=== PATIENT | male | born 1960 | race Caucasian/White ===

== ENCOUNTER 2019-07-07 15:47 | Inpatient (IN) | payer MEDICAID ==
[~2019-07-07] VITALS: Ht 182.9 cm; Wt 132.5 kg
[2019-07-07] MEDS ORDERED: ceFAZolin 1GM/D5W- ADD-VANTAGE 50 ML IV ONE (16:45)
[2019-07-07 17:05] LABS: BASOPHILS % (AUTO) 0.4 % (0-1); EOSINOPHILS # (AUTO) 0.1 X10'3 (0-0.9); EOSINOPHILS % (AUTO) 1.5 % (0-6); HEMATOCRIT 36.4 % (42.0-52.0); HEMOGLOBIN 12.6 g/dl (14.0-17.9); LYMPHOCYTES % (AUTO) 11.9 % (21-51); MEAN CORPUSCULAR HEMOGLOBIN 31.4 PG (27.0-31.0); MEAN CORPUSCULAR HGB CONC 34.6 g/dL (33.0-36.5); MEAN CORPUSCULAR VOLUME 90.7 FL (78-98); MEAN PLATELET VOLUME 6.6 FL (7.4-10.4); MONOCYTES # (AUTO) 0.4 X10'3 (0-0.9); NEUTROPHILS % (AUTO) 81.2 % (42-75); PLATELET COUNT 229 X10'3 (140-440); RED BLOOD COUNT 4.01 X10'6 (4.70-6.10); RED CELL DISTRIBUTION WIDTH 13.9 % (11.5-14.5); WHITE BLOOD COUNT 8.7 X10'3 (4.5-11.0)
[2019-07-07 17:21] LABS: ALANINE AMINOTRANSFERASE 41 U/L (12-78); ALBUMIN 2.8 G/DL (3.4-5.0); ALBUMIN/GLOBULIN RATIO 0.7 (1.1-1.5); ALKALINE PHOSPHATASE 98 IU/L (46-116); ANION GAP 9 (8-16); ASPARTATE AMINO TRANSFERASE 31 U/L (10-37); BILIRUBIN,TOTAL 1.1 MG/DL (0.1-1.0); BLOOD UREA NITROGEN 18 MG/DL (7-18); BUN/CREATININE RATIO 15.4 (5.4-32.0); CALCIUM 8.5 MG/DL (8.5-10.1); CHLORIDE 102 MMOL/L (99-107); CREATININE 1.17 MG/DL (0.60-1.10); GLUCOSE 149 MG/DL (70-104); MAGNESIUM 1.8 MG/DL (1.5-2.4); POTASSIUM 3.4 MMOL/L (3.5-5.1); SODIUM 137 MMOL/L (135-145); TOTAL CARBON DIOXIDE 26.3 MMOL/L (24-32); TOTAL PROTEIN 7.1 G/DL (6.4-8.2); eGFR 64 ML/MIN
[2019-07-07 17:24] LABS: D-DIMER 0.97 MG/L FEU (0-0.50)
--- NOTE | 2019-07-07 17:27 | NUR ---
Spoke with MD Fontenot concerning blood cultures before starting antibiotics. MD Fontenot declined new orders
[2019-07-07] MEDS ORDERED: IBUP-1986 PO (18:29)
[2019-07-07] MEDS ORDERED: FURO-150 PO (18:29)
[2019-07-07] MEDS ORDERED: iohexol 350MG/ML 100ml bottle IV ONE (19:05)
[2019-07-07] MEDS ORDERED: normal saline 1000ml 1,000 ML IV SCH (20:41)
[2019-07-07] MEDS ORDERED: acetaminophen 325mg tablet PO PRN (20:45)
[2019-07-07] MEDS ORDERED: HYDROmorphone inj. 0.5 MG/0.5 ML DISP.SYRIN IV PRN (20:45)
[2019-07-07] MEDS ORDERED: mag hydrox/Alum hydrox/simeth 30ml oral suspension PO PRN (20:45)
[2019-07-07] MEDS ORDERED: magnesium hydroxide 30ml (MOM) UD suspension PO PRN (20:45)
[2019-07-07] MEDS ORDERED: HYDROcodone/acetaminophen 5mg/325mg tablet PO PRN (20:45)
[2019-07-07] MEDS ORDERED: ondansetron/PF 4mg/2ml inj IV PRN (20:45)
[2019-07-07] MEDS ORDERED: cloNIDine 0.1 MG/24 HOUR patch (7 day patch) TD ONE (20:50)
--- NOTE | 2019-07-07 21:00 | NUR ---
Patient in room ORTHO 4014. I have received report from ASHLEY Gr and had the opportunity to ask questions and assume patient care.
[2019-07-07] MEDS: HYDROmorphone 1 mg/ml syringe IV PRN (21:32)
[2019-07-07 22:00] VITALS: BP 143/72
[2019-07-07] MEDS: HYDROcodone/acetaminophen 10/325mg tab PO PRN (22:49)
[2019-07-08] MEDS: ceFAZolin 1GM/D5W- ADD-VANTAGE 50 ML IV SCH ×2 (00:15→07:15)
[2019-07-08] MEDS: HYDROmorphone 1 mg/ml syringe IV PRN ×4 (02:59→20:13)
[2019-07-08 04:05] LABS: URINE AMPHETAMINE SCREEN POSITIVE (Neg); URINE BARBITUATE SCREEN NEGATIVE (Neg); URINE BENZODIAZEPINES SCREEN NEGATIVE (Neg); URINE CANNABINOID SCREEN POSITIVE (Neg); URINE COCAINE SCREEN NEGATIVE (Neg); URINE METHADONE SCREEN NEGATIVE (Neg); URINE OPIATE SCREEN POSITIVE (Neg); URINE PHENCYCLIDINE SCREEN NEGATIVE (Neg)
[2019-07-08 06:25] LABS: BASOPHILS % (AUTO) 0.3 % (0-1); EOSINOPHILS # (AUTO) 0.1 X10'3 (0-0.9); EOSINOPHILS % (AUTO) 1.6 % (0-6); HEMATOCRIT 34.1 % (42.0-52.0); HEMOGLOBIN 11.9 g/dl (14.0-17.9); LYMPHOCYTES # (AUTO) 0.8 X10'3 (1.1-4.8); LYMPHOCYTES % (AUTO) 12.8 % (21-51); MEAN CORPUSCULAR HEMOGLOBIN 31.5 PG (27.0-31.0); MEAN CORPUSCULAR HGB CONC 34.9 g/dL (33.0-36.5); MEAN CORPUSCULAR VOLUME 90.4 FL (78-98); MEAN PLATELET VOLUME 6.6 FL (7.4-10.4); MONOCYTES # (AUTO) 0.5 X10'3 (0-0.9); MONOCYTES % (AUTO) 8.5 % (2-12); NEUTROPHILS # (AUTO) 4.9 X10'3 (1.8-7.7); NEUTROPHILS % (AUTO) 76.8 % (42-75); PLATELET COUNT 228 X10'3 (140-440); RED BLOOD COUNT 3.77 X10'6 (4.70-6.10); RED CELL DISTRIBUTION WIDTH 13.7 % (11.5-14.5); WHITE BLOOD COUNT 6.3 X10'3 (4.5-11.0)
--- NOTE | 2019-07-08 06:39 | NUR ---
Problems reprioritized. Patient report given, questions answered & plan of care reviewed with ASHLEY Crane and ASHLEY Bolaños.
[2019-07-08 06:51] VITALS: BP 121/83
--- NOTE | 2019-07-08 06:52 | NUR ---
Patient in room ORTHO 4014. I have received report from Vivien RAMIREZ and had the opportunity to ask questions and assume patient care.
[2019-07-08 07:05] LABS: ALANINE AMINOTRANSFERASE 57 U/L (12-78); ALBUMIN 2.4 G/DL (3.4-5.0); ALBUMIN/GLOBULIN RATIO 0.6 (1.1-1.5); ALKALINE PHOSPHATASE 96 IU/L (46-116); ANION GAP 9 (8-16); ASPARTATE AMINO TRANSFERASE 61 U/L (10-37); BLOOD UREA NITROGEN 16 MG/DL (7-18); BUN/CREATININE RATIO 16.2 (5.4-32.0); CALCIUM 8.1 MG/DL (8.5-10.1); CHLORIDE 103 MMOL/L (99-107); CREATININE 0.99 MG/DL (0.60-1.10); GLUCOSE 110 MG/DL (70-104); POTASSIUM 3.7 MMOL/L (3.5-5.1); SODIUM 138 MMOL/L (135-145); TOTAL CARBON DIOXIDE 25.6 MMOL/L (24-32); TOTAL PROTEIN 6.4 G/DL (6.4-8.2); eGFR 77 ML/MIN
[2019-07-08] MEDS: heparin, porcine 5000 units/ml vial SQ SCH ×2 (07:14→20:04)
[2019-07-08] MEDS: HYDROcodone/acetaminophen 10/325mg tab PO PRN ×3 (07:27→19:04)
[2019-07-08 10:49] VITALS: BP 121/64
[2019-07-08] MEDS: cefazolin/dext.iso 2gm/100ml 100 ML IV SCH (15:15)
--- NOTE | 2019-07-08 16:27 | NUR ---
Miky [id number] Re: [id number]. Can we get a order for Ativan, Pt appears to be withdrawing, having sweats, shakiness, agitation.
[2019-07-08] MEDS ORDERED: methadone 10mg tablet PO ONE ×2 (16:40→19:50)
[2019-07-08 18:00] VITALS: BP 168/92
--- NOTE | 2019-07-08 18:20 | NUR ---
Patient in room ORTHO 4014. I have received report from MikyRN and Rosa MariaRN and had the opportunity to ask questions and assume patient care.
--- NOTE | 2019-07-08 18:25 | NUR ---
I have reviewed and agree with all interventions, assessments performed and documented by Miky RAMIREZ.
--- NOTE | 2019-07-08 18:27 | NUR ---
Problems reprioritized. Patient report given, questions answered & plan of care reviewed with Vivien RAMIREZ.
[2019-07-08] MEDS ORDERED: cloNIDine 0.1 MG/24 HOUR patch (7 day patch) TD ONE (19:50)
--- NOTE | 2019-07-08 20:00 | NUR ---
Shyane was going to withdraw from heroin ,he was not feeling well at all,I call the doctor he gave a order for Methadone 20 mg one time order and Clonidine 0.1 mg.one time order also.We will continue with pt. care.
[2019-07-08 22:00] VITALS: BP 131/80
[2019-07-09] MEDS: cefazolin/dext.iso 2gm/100ml 100 ML IV SCH ×4 (00:16→23:56)
[2019-07-09] MEDS: HYDROcodone/acetaminophen 10/325mg tab PO PRN ×4 (00:20→18:49)
[2019-07-09] MEDS ORDERED: methadone 5mg tablet PO PRN (00:35)
[2019-07-09] MEDS: methadone 5mg tablet PO SCH ×3 (01:02→08:00)
[2019-07-09] MEDS: HYDROmorphone 1 mg/ml syringe IV PRN ×4 (04:21→20:38)
--- NOTE | 2019-07-09 06:21 | NUR ---
Problems reprioritized. Patient report given, questions answered & plan of care reviewed with ASHLEY Reyez.
--- NOTE | 2019-07-09 06:23 | NUR ---
Received report from Vivien RAMIREZ
[2019-07-09 06:24] VITALS: BP 119/60
[2019-07-09 06:58] LABS: BASOPHILS % (AUTO) 0.8 % (0-1); EOSINOPHILS # (AUTO) 0.2 X10'3 (0-0.9); EOSINOPHILS % (AUTO) 3.1 % (0-6); HEMATOCRIT 34.4 % (42.0-52.0); HEMOGLOBIN 11.9 g/dl (14.0-17.9); LYMPHOCYTES # (AUTO) 0.9 X10'3 (1.1-4.8); LYMPHOCYTES % (AUTO) 17.9 % (21-51); MEAN CORPUSCULAR HEMOGLOBIN 31.4 PG (27.0-31.0); MEAN CORPUSCULAR HGB CONC 34.7 g/dL (33.0-36.5); MEAN CORPUSCULAR VOLUME 90.5 FL (78-98); MEAN PLATELET VOLUME 6.7 FL (7.4-10.4); MONOCYTES # (AUTO) 0.5 X10'3 (0-0.9); MONOCYTES % (AUTO) 10.6 % (2-12); NEUTROPHILS # (AUTO) 3.3 X10'3 (1.8-7.7); NEUTROPHILS % (AUTO) 67.6 % (42-75); PLATELET COUNT 258 X10'3 (140-440); RED CELL DISTRIBUTION WIDTH 13.6 % (11.5-14.5); WHITE BLOOD COUNT 4.9 X10'3 (4.5-11.0)
[2019-07-09 07:07] LABS: ALANINE AMINOTRANSFERASE 76 U/L (12-78); ALBUMIN 2.2 G/DL (3.4-5.0); ALBUMIN/GLOBULIN RATIO 0.5 (1.1-1.5); ALKALINE PHOSPHATASE 101 IU/L (46-116); ANION GAP 8 (8-16); ASPARTATE AMINO TRANSFERASE 75 U/L (10-37); BILIRUBIN,TOTAL 0.6 MG/DL (0.1-1.0); BLOOD UREA NITROGEN 15 MG/DL (7-18); BUN/CREATININE RATIO 15.3 (5.4-32.0); CALCIUM 7.8 MG/DL (8.5-10.1); CHLORIDE 105 MMOL/L (99-107); CREATININE 0.98 MG/DL (0.60-1.10); GLUCOSE 134 MG/DL (70-104); POTASSIUM 3.7 MMOL/L (3.5-5.1); SODIUM 139 MMOL/L (135-145); TOTAL CARBON DIOXIDE 25.9 MMOL/L (24-32); TOTAL PROTEIN 6.3 G/DL (6.4-8.2); eGFR 78 ML/MIN
[2019-07-09] MEDS ORDERED: enoxaparin 40mg/0.4ml syringe SUBCUT SCH (08:00)
[2019-07-09] MEDS: heparin, porcine 5000 units/ml vial SQ SCH ×2 (08:11→20:02)
[2019-07-09] MEDS: methadone 10mg tablet PO SCH ×2 (08:51→20:01)
[2019-07-09] MEDS: furosemide 20 MG/2 ML vial IV SCH (10:41)
[2019-07-09 18:00] VITALS: BP 125/80
[2019-07-09 22:00] VITALS: BP 164/102
[2019-07-10] MEDS: HYDROmorphone 1 mg/ml syringe IV PRN ×2 (00:51→09:00)
[2019-07-10 01:00] VITALS: BP 115/66
[2019-07-10] MEDS: HYDROcodone/acetaminophen 10/325mg tab PO PRN ×2 (04:12→11:45)
[2019-07-10 06:00] VITALS: BP 163/89
[2019-07-10 06:25] LABS: BASOPHILS % (AUTO) 0.5 % (0-1); EOSINOPHILS # (AUTO) 0.2 X10'3 (0-0.9); EOSINOPHILS % (AUTO) 3.1 % (0-6); HEMATOCRIT 35.9 % (42.0-52.0); HEMOGLOBIN 12.4 g/dl (14.0-17.9); LYMPHOCYTES # (AUTO) 1.1 X10'3 (1.1-4.8); LYMPHOCYTES % (AUTO) 18.5 % (21-51); MEAN CORPUSCULAR HEMOGLOBIN 31.2 PG (27.0-31.0); MEAN CORPUSCULAR HGB CONC 34.5 g/dL (33.0-36.5); MEAN CORPUSCULAR VOLUME 90.3 FL (78-98); MEAN PLATELET VOLUME 6.5 FL (7.4-10.4); MONOCYTES # (AUTO) 0.7 X10'3 (0-0.9); MONOCYTES % (AUTO) 12.4 % (2-12); NEUTROPHILS # (AUTO) 3.9 X10'3 (1.8-7.7); NEUTROPHILS % (AUTO) 65.5 % (42-75); PLATELET COUNT 286 X10'3 (140-440); RED BLOOD COUNT 3.97 X10'6 (4.70-6.10); RED CELL DISTRIBUTION WIDTH 13.4 % (11.5-14.5); WHITE BLOOD COUNT 5.9 X10'3 (4.5-11.0)
[2019-07-10 06:33] LABS: ALANINE AMINOTRANSFERASE 61 U/L (12-78); ALBUMIN 2.4 G/DL (3.4-5.0); ALBUMIN/GLOBULIN RATIO 0.6 (1.1-1.5); ALKALINE PHOSPHATASE 105 IU/L (46-116); ANION GAP 7 (8-16); ASPARTATE AMINO TRANSFERASE 49 U/L (10-37); BILIRUBIN,TOTAL 0.6 MG/DL (0.1-1.0); BLOOD UREA NITROGEN 15 MG/DL (7-18); BUN/CREATININE RATIO 15.5 (5.4-32.0); CHLORIDE 104 MMOL/L (99-107); CREATININE 0.97 MG/DL (0.60-1.10); GLUCOSE 100 MG/DL (70-104); POTASSIUM 3.9 MMOL/L (3.5-5.1); SODIUM 138 MMOL/L (135-145); TOTAL CARBON DIOXIDE 26.7 MMOL/L (24-32); TOTAL PROTEIN 6.6 G/DL (6.4-8.2); eGFR 79 ML/MIN
[2019-07-10] MEDS: furosemide 20 MG/2 ML vial IV SCH (08:59)
[2019-07-10] MEDS: cefazolin/dext.iso 2gm/100ml 100 ML IV SCH (08:59)
[2019-07-10] MEDS: heparin, porcine 5000 units/ml vial SQ SCH (08:59)
[2019-07-10] MEDS: methadone 10mg tablet PO SCH (09:01)
[2019-07-10] MEDS ORDERED: CEPH250T PO (10:16)
[2019-07-10] MEDS ORDERED: HYDR-4383 PO (10:17)
--- NOTE | 2019-07-10 12:00 | NUR ---
DISCHARGE: VSS, RR even/unlabored. O2 96 RA at DC. pt uses O2 PRN at home. Lungs Wheezes r/t COPD, smoking habits/. New Rx for Keflex and [place] to full at pharmacy of pt choice. pt verbalized understanding of follow up w/recommended facilities for addiction. First appt made tomorrow 07/11/19. All necessary DC documents signed and copies released to pt. pt escorted TOMASZ in WC by [facility] staff & family members. pt transferred safely into personal vehicle. pt thanked [facility] for his care.
== END 2019-07-10 12:05 | disposition home or self-care (01) | DRG 194 ==
LOC: ER 15:48 → ORTHO 4S 21:43
PROVIDERS: ADMIT Internal Medicine; ATTEND Internal Medicine
PROC: B32T1ZZ Computerized Tomography (CT Scan) of Left Pulmonary Artery using Low Osmolar Contrast (ICD-10-PCS; principal; 2019-07-07)
PROC: B3201ZZ Computerized Tomography (CT Scan) of Thoracic Aorta using Low Osmolar Contrast (ICD-10-PCS; 2019-07-07)
PROC: B32S1ZZ Computerized Tomography (CT Scan) of Right Pulmonary Artery using Low Osmolar Contrast (ICD-10-PCS; 2019-07-07)
DX: I50.813 Acute on chronic right heart failure (principal); I27.81 Cor pulmonale (chronic); E66.01 Morbid (severe) obesity due to excess calories; E11.9 Type 2 diabetes mellitus without complications; L03.115 Cellulitis of right lower limb; F11.23 Opioid dependence with withdrawal; F17.210 Nicotine dependence, cigarettes, uncomplicated; F12.90 Cannabis use, unspecified, uncomplicated; I89.0 Lymphedema, not elsewhere classified; J44.9 Chronic obstructive pulmonary disease, unspecified; Z79.899 Other long term (current) drug therapy; Z86.711 Personal history of pulmonary embolism; Z68.39 Body mass index [BMI] 39.0-39.9, adult; Z80.3 Family history of malignant neoplasm of breast
CPT/HCPCS: 36415; 71045; 71275; 80053; 80305; 83735; 84145; 85025; 85379; 87081; 93005; 93306; 93971; 96365; 97116; 97161; 97530; 99285; G0378; J0690; J1170; J1644; J1940; J7030; Q9967

== ENCOUNTER 2019-07-19 10:46 | Emergency (ER) | payer MEDICAID ==
[~2019-07-19] VITALS: Ht 182.9 cm; Wt 118.2 kg
[~2019-07-19 10:46] MED LIST: CEPH250T PO; FURO-150 PO; HYDR-4383 PO; IBUP-1986 PO
[2019-07-19] MEDS ORDERED: buprenorphine/naloxone 8mg/2mg SL tablet SL PRN (12:45)
[2019-07-19] MEDS ORDERED: furosemide 40mg/4ml inj IV ONE (12:50)
[2019-07-19] MEDS ORDERED: furosemide 10 MG/1 ML 10ml inj IV ONE (12:50)
[2019-07-19] MEDS ORDERED: furosemide 20MG tablet PO ONE (12:55)
--- NOTE | 2019-07-19 12:58 | NUR ---
CALLED PHARMACY STATED MAKING SUBOXONE NOW STATED ABOUT 10 MIN WILL BRING DOWN
[2019-07-19 13:09] LABS: BASOPHILS # (AUTO) 0.1 X10'3 (0-0.2); BASOPHILS % (AUTO) 0.8 % (0-1); EOSINOPHILS # (AUTO) 0.1 X10'3 (0-0.9); HEMATOCRIT 43.1 % (42.0-52.0); HEMOGLOBIN 14.7 g/dl (14.0-17.9); LYMPHOCYTES # (AUTO) 1.1 X10'3 (1.1-4.8); LYMPHOCYTES % (AUTO) 14.1 % (21-51); MEAN CORPUSCULAR HEMOGLOBIN 31.3 PG (27.0-31.0); MEAN CORPUSCULAR VOLUME 91.8 FL (78-98); MEAN PLATELET VOLUME 6.6 FL (7.4-10.4); MONOCYTES # (AUTO) 0.5 X10'3 (0-0.9); MONOCYTES % (AUTO) 6.1 % (2-12); NEUTROPHILS # (AUTO) 6.1 X10'3 (1.8-7.7); PLATELET COUNT 378 X10'3 (140-440); RED BLOOD COUNT 4.69 X10'6 (4.70-6.10); RED CELL DISTRIBUTION WIDTH 13.6 % (11.5-14.5); WHITE BLOOD COUNT 7.8 X10'3 (4.5-11.0)
[2019-07-19 13:21] LABS: ALANINE AMINOTRANSFERASE 19 U/L (12-78); ALBUMIN 3.5 G/DL (3.4-5.0); ALBUMIN/GLOBULIN RATIO 0.7 (1.1-1.5); ALKALINE PHOSPHATASE 120 IU/L (46-116); ANION GAP 11 (8-16); ASPARTATE AMINO TRANSFERASE 12 U/L (10-37); BLOOD UREA NITROGEN 19 MG/DL (7-18); BUN/CREATININE RATIO 21.6 (5.4-32.0); CALCIUM 9.6 MG/DL (8.5-10.1); CHLORIDE 102 MMOL/L (99-107); CREATININE 0.88 MG/DL (0.60-1.10); GLUCOSE 100 MG/DL (70-104); POTASSIUM 4.4 MMOL/L (3.5-5.1); SODIUM 138 MMOL/L (135-145); TOTAL CARBON DIOXIDE 25.1 MMOL/L (24-32); TOTAL PROTEIN 8.2 G/DL (6.4-8.2); eGFR 88 ML/MIN
[2019-07-19] MEDS ORDERED: buprenorphine/naloxone 8mg/2mg SL tablet SL ONE (13:50)
[2019-07-19] MEDS ORDERED: buprenorphine/naloxone 8MG-2MG SUBlingual film SL ONE (14:05)
--- NOTE | 2019-07-19 14:42 | NUR ---
PT CALLED STEP MOTHER TO COME PROBATION OFFICER. JULIET IYER ASKED IF WE COULD MONITOR HIM FOR 30 MIN AFTER GIVING SL SUBOXONE.
[2019-07-19 14:43] VITALS: BP 150/114
== END 2019-07-19 15:31 | disposition home or self-care (01) ==
LOC: ER 10:47
DX: F11.23 Opioid dependence with withdrawal (principal); R60.0 Localized edema; R06.02 Shortness of breath; R07.89 Other chest pain; J44.9 Chronic obstructive pulmonary disease, unspecified; E11.9 Type 2 diabetes mellitus without complications; F12.90 Cannabis use, unspecified, uncomplicated; Z86.711 Personal history of pulmonary embolism; Z88.8 Allergy status to other drugs, medicaments and biological substances; Z79.899 Other long term (current) drug therapy
CPT/HCPCS: 36415; 71045; 80053; 84484; 85025; 93005; 99284; J1940